=== PATIENT | female | born 1945 | race Caucasian/White ===

== ENCOUNTER → 2016-07-12 | Outpatient (CLI) | payer MEDICARE, OTHER ==
[~2016-07-12] MED LIST: ASA325 MG PO; CELEBREX200 MG PO; COZAAR DPS25 MG OP; FLEXERIL-DPS10 MG PO; LOPRESSOR50 MG PO; MEVACOR40 MG PO; MIRALAX PACKET17 GM PO; PLAVIX75 MG PO; PREVACID30 MG PO; SENOKOT S1 TAB PO; SYNTHROID DPS0.1 MG PO; TYLENOL DPS325 MG PO; ULTRAM DPS50 MG PO; VISTARIL-DPS50 MG PO
== END | disposition home or self-care (01) ==
DX: Z01.818 Encounter for other preprocedural examination (principal); R00.1 Bradycardia, unspecified; R94.31 Abnormal electrocardiogram [ECG] [EKG]; I10 Essential (primary) hypertension